=== PATIENT | male | born 1980 | race Asian ===

== ENCOUNTER 2018-11-25 12:50 | Emergency (ER) | payer OTHER ==
[2018-11-25 13:04] VITALS: BP 134/81; PULSE 87; TEMP 98; BMI 25.8
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
[2018-11-26 02:14] LABS: HBsAG SCREEN Negative (Negative)
== END 2018-11-25 13:45 | disposition home or self-care (01) ==
LOC: JERFT 12:50
DX: Z77.21 Contact with and (suspected) exposure to potentially hazardous body fluids (principal); Y35.891A Legal intervention involving other specified means, law enforcement official injured, initial encounter; Y93.89 Activity, other specified; Y92.89 Other specified places as the place of occurrence of the external cause; Y99.0 Civilian activity done for income or pay
CPT/HCPCS: 36415; 86317; 86706; 86803; 87340; 87389; 99281-25

== ENCOUNTER 2018-12-29 13:51 | Emergency (ER) | payer OTHER ==
[2018-12-29 14:10] VITALS: BP 143/89; PULSE 82; TEMP 98.4; BMI 25.8
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
== END 2018-12-29 16:05 | disposition home or self-care (01) ==
LOC: JERFT 13:51
DX: Z77.21 Contact with and (suspected) exposure to potentially hazardous body fluids (principal); Y35.891A Legal intervention involving other specified means, law enforcement official injured, initial encounter; Y93.89 Activity, other specified; Y92.89 Other specified places as the place of occurrence of the external cause; Y99.0 Civilian activity done for income or pay
CPT/HCPCS: 36415; 87389; 99281-25